=== PATIENT | female | born 1980 | race Caucasian/White ===

== ENCOUNTER 2022-12-10 14:40 | Emergency (ER) | payer BC ==
[~2022-12-10] VITALS: Ht 152.4 cm; Wt 45.4 kg
[2022-12-10] MEDS ORDERED: AMOX-CLAV 875-1 EACH PO (16:32)
== END 2022-12-10 15:50 | disposition home or self-care (01) ==
LOC: ED 14:40
DX: S81.851A Open bite, right lower leg, initial encounter (principal); W54.0XXA Bitten by dog, initial encounter; Y93.89 Activity, other specified; Y92.89 Other specified places as the place of occurrence of the external cause; Y99.8 Other external cause status